=== PATIENT | female | born 1980 | race Hispanic/Latino ===

== ENCOUNTER 2020-09-09 05:33 | Observation (INO) | payer OTHER ==
[2020-09-04 13:18] LABS: BASOPHILS % (AUTO) 0.8 % (0.0-5.0); EOSINOPHILS % (AUTO) 1.4 % (0.0-8.0); HEMATOCRIT 38.3 % (36-48); LYMPHOCYTES % (AUTO) 31.1 % (21.0-51.0); MEAN CORPUSCULAR HEMOGLOBIN 24.5 pg (27.0-33.0); MEAN CORPUSCULAR HGB CONC 30.3 g/dL (32.0-36.0); MONOCYTES % (AUTO) 6.8 % (3.0-13.0); PLATELET COUNT (AUTO) 403 K/uL (130-400); RED BLOOD CELL COUNT(AUTO) 4.73 MIL/uL (4.00-5.50); RED CELL DISTRIBUTION WIDTH 18.3 % (11.0-15.5); WHITE BLOOD COUNT (AUTO) 6.3 K/uL (4.8-10.8)
[2020-09-08 10:01] VITALS: BP 133/86
[2020-09-09] VITALS (32 sets, daily range): BP systolic 96–146; BP diastolic 50–92
[~2020-09-09] VITALS: Ht 157.5 cm; Wt 98.2 kg
[2020-09-09] MEDS ORDERED: LEVO100C4 PO (08:48)
[2020-09-09] MEDS ORDERED: IBUP-2070 PO (08:54)
[2020-09-09] MEDS ORDERED: FERR325T22 PO (08:54)
[2020-09-09] MEDS ORDERED: HYDR200T4 PO (08:54)
[2020-09-09] MEDS ORDERED: CYCL5TAB PO (08:54)
[2020-09-09] MEDS ORDERED: LISI1TAB51 PO (08:54)
[2020-09-09] MEDS ORDERED: NIFE30TA98 PO (08:54)
[2020-09-09] MEDS ORDERED: SODIUM CHLORIDE 0.9% 1000ML 1,000 ML IV ONE (09:49)
[2020-09-09] MEDS ORDERED: NEOSTIGMINE 5MG/5ML SYR IV ONE (11:00)
[2020-09-09] MEDS ORDERED: MIDAZOLAM HCL 1 MG/ML 2ML VIAL ONE (11:00)
[2020-09-09] MEDS ORDERED: SUCCINYLCHOLINE CHLORIDE 20 MG/ML 10 ML VIAL ONE (11:00)
[2020-09-09] MEDS ORDERED: PROPOFOL 10 MG/ML 20ML VIAL IV ONE (11:00)
[2020-09-09] MEDS ORDERED: DEXAMETHASONE SOD PHOSPHATE 10MG/ML 1ML VIAL ONE (11:00)
[2020-09-09] MEDS ORDERED: FENTANYL CITRATE PF 50 MCG/1 ML 2ML VIAL ONE ×3 (11:01→13:45)
[2020-09-09] MEDS ORDERED: ROCURONIUM 10MG/1ML SYR 10 MG/ML ML ONE (11:01)
[2020-09-09] MEDS ORDERED: ONDANSETRON HCL 4 MG/2 ML VIAL ONE (11:57)
[2020-09-09] MEDS ORDERED: MEPERIDINE-PF 25 MG/ML SYG ONE ×3 (12:01→15:00)
[2020-09-09] MEDS ORDERED: CEFAZOLIN SODIUM 1 GM VIAL ONE (12:08)
[2020-09-09] MEDS ORDERED: GLYCOPYRROLATE 1 MG/5 ML SYRINGE ONE (13:44)
[2020-09-09] MEDS ORDERED: PROMETHAZINE HCL 25 MG/ML 1ML AMPULE IM PRN ×2 (15:45)
[2020-09-09] MEDS ORDERED: ONDANSETRON HCL 4 MG/2 ML VIAL IVP PRN (15:45)
[2020-09-09] MEDS ORDERED: MEPERIDINE-PF 75 MG/ML SYG IM PRN (15:45)
[2020-09-09] MEDS ORDERED: BISACODYL 10 MG SUPP.RECT RC PRN (15:45)
[2020-09-09] MEDS: DEXTROSE 5 %-0.45 % NACL 1,000 ML IV PRN (15:59)
[2020-09-09] MEDS: ACETAMINOPHEN-CODEINE 300/30MG TAB PO PRN (19:44)
[2020-09-09] MEDS: SIMETHICONE 80 MG TAB.CHEW PO PRN (21:48)
[2020-09-09] MEDS: DOCUSATE SODIUM 100 MG CAP PO PRN (21:48)
[2020-09-10] MEDS: ACETAMINOPHEN-CODEINE 300/30MG TAB PO PRN (00:10)
[2020-09-10] MEDS: DEXTROSE 5 %-0.45 % NACL 1,000 ML IV PRN (00:12)
[2020-09-10 03:00] VITALS: BP 131/64
[2020-09-10 05:18] LABS: HEMATOCRIT 34.8 % (36-48); MEAN CORPUSCULAR HEMOGLOBIN 24.9 pg (27.0-33.0); MEAN CORPUSCULAR HGB CONC 30.7 g/dL (32.0-36.0); MEAN CORPUSCULAR VOLUME 81.1 fL (79-99); RED BLOOD CELL COUNT(AUTO) 4.29 MIL/uL (4.00-5.50); RED CELL DISTRIBUTION WIDTH 19.2 % (11.0-15.5); WHITE BLOOD COUNT (AUTO) 16.6 K/uL (4.8-10.8)
[2020-09-10] MEDS: INSULIN HUMULIN R 100 UNIT/ML 3ML SQ SCH ×2 (07:30→11:30)
[2020-09-10 07:58] VITALS: BP 113/72
[2020-09-10] MEDS: DOCUSATE SODIUM 100 MG CAP PO PRN (07:59)
[2020-09-10] MEDS: SIMETHICONE 80 MG TAB.CHEW PO PRN (07:59)
[2020-09-10] MEDS: IBUPROFEN 600 MG TABLET PO PRN ×2 (08:03→14:57)
[2020-09-10 11:24] VITALS: BP 105/53
== END 2020-09-10 15:25 | disposition home or self-care (01) ==
LOC: DAH 05:33 → DAHIP 05:34 → WSH 15:40
PROVIDERS: ADMIT Obstetrics & Gynecology; ATTEND Obstetrics & Gynecology
DX: N92.1 Excessive and frequent menstruation with irregular cycle (principal); Z20.828 Contact with and (suspected) exposure to other viral communicable diseases; N81.5 Vaginal enterocele; N94.6 Dysmenorrhea, unspecified; N83.209 Unspecified ovarian cyst, unspecified side; D50.9 Iron deficiency anemia, unspecified; E66.01 Morbid (severe) obesity due to excess calories; I10 Essential (primary) hypertension; E11.9 Type 2 diabetes mellitus without complications; E03.9 Hypothyroidism, unspecified; Z79.899 Other long term (current) drug therapy; Z68.39 Body mass index [BMI] 39.0-39.9, adult
CPT/HCPCS: 36415 ×3; 57268; 58552; 82948 ×4; 84703; 85025; 85027; 86850 ×2; 86900 ×2; 86901 ×2; 96360; 96361 ×2; 96372; A4215 ×2; A4221; A4222; A4223; A4344; A4649 ×3; A4663; A6260; C1769 ×2; C9803; G0378 ×31; J0330; J0690; J1100; J2175 ×4; J2250; J2405; J2550; J2704; J2710; J3010 ×3; J3490; J7030 ×2; U0003

== ENCOUNTER → 2023-07-18 | Outpatient (CLI) | payer OTHER ==
[~2023-07-18] MED LIST: CYCL5TAB PO; FERR325T22 PO; HYDR200T75 PO; IBUP-2070 PO; LEVO100C4 PO; LISI1TAB51 PO; NIFE-78 PO
== END | disposition home or self-care (01) ==
LOC: SHCH 13:56
PROVIDERS: ATTEND Internal Medicine Cardiovascular Disease
DX: I87.2 Venous insufficiency (chronic) (peripheral) (principal)
CPT/HCPCS: 93970